=== PATIENT | female | born 1960 | race Caucasian/White ===

== ENCOUNTER 2022-10-04 13:42 | Emergency (ER) | payer OTHER ==
[~2022-10-04] VITALS: Ht 165.1 cm; Wt 104.5 kg
[~2022-10-04 13:42] MED LIST: HYDR25TA4 PO; LISI40TA13 PO; METO200T3 PO
[2022-10-04 13:58] VITALS: BP 142/62
[2022-10-04] MEDS ORDERED: HYDROcodone/acetaminophen 10/325mg tab PO ONE (15:00)
[2022-10-04] MEDS ORDERED: HYDR-3972 PO (15:09)
--- NOTE | 2022-10-04 15:53 | NUR ---
ankle velcro splint applied
== END 2022-10-04 15:56 | disposition home or self-care (01) ==
LOC: ER 13:42
DX: S93.401A Sprain of unspecified ligament of right ankle, initial encounter (principal); M25.571 Pain in right ankle and joints of right foot; E78.00 Pure hypercholesterolemia, unspecified; I10 Essential (primary) hypertension; Z86.19 Personal history of other infectious and parasitic diseases; Z72.89 Other problems related to lifestyle; Z79.899 Other long term (current) drug therapy; W19.XXXA Unspecified fall, initial encounter; Y93.01 Activity, walking, marching and hiking; Y92.89 Other specified places as the place of occurrence of the external cause; Y99.8 Other external cause status
CPT/HCPCS: 29515; 73610; 99284; L1930

== ENCOUNTER 2025-08-14 10:12 | Day surgery (SDC) | payer MEDICARE ==
--- NOTE | 2025-08-07 14:56 | ELECTROCARDIOGRAPH REPORT ---
[facility] Test Date: 2025-08-07 Test Time: 15:54:18 Pat Name: ALEXIS JACKSON Department: [facility]-PRE-OP Patient ID: [facility]-[id number] Room: Gender: F Scientific Research Associate: kaur : 1960 Requested By: DAVE BRANHAM Order Number: [id number] Reading MD: Dr. FRANCOIS Melendez Measurements Intervals [place] Rate: 62 P: 72 FL: 154 QRS: 65 QRSD: 94 T: 51 QT: 418 QTc: 425 Interpretive Statements Sinus rhythm Electronically Signed On 08-08-2025 16:46:[address] FRANCOIS Melendez Please click the below link to view image of tracing.
[2025-08-07 15:04] LABS: MEAN PLATELET VOLUME 7.9 FL (7.4-10.4); PRE OP HEMATOCRIT 39.0 % (35.0-45.0); PRE OP HEMOGLOBIN 13.8 g/dL (12.0-16.0); PRE OP PLATELET COUNT 231 X10'3 (140-440); PRE OP WHITE BLOOD COUNT 8.5 10'3 (4.8-10.8); RED CELL DISTRIBUTION WIDTH 13.5 % (11.5-14.5)
[2025-08-07 15:14] LABS: CREATININE 0.93 MG/DL (0.40-0.90); PRE OP ALT 39 U/L (30-65); PRE OP ANION GAP 5 (8-16); PRE OP AST 24 U/L (10-37); PRE OP BILIRUB, TOTAL 0.9 MG/DL (0.0-1.0); PRE OP GLUCOSE 99 MG/DL (70-104); PRE OP POTASSIUM 3.9 MMOL/L (3.4-5.1); PRE OP SODIUM 134 MMOL/L (135-145); TOTAL CARBON DIOXIDE 31.5 MMOL/L (24-32); eGFR 61 ML/MIN
[2025-08-14] VITALS (15 sets, daily range): BP systolic 100–160; BP diastolic 50–82; PULSE 60–82; RESP 12–23; TEMP 97.2–98; O2SAT 92–99
[~2025-08-14] VITALS: Ht 165.1 cm; Wt 103.9 kg
[2025-08-14] MEDS: ceFAZolin 2gm/dext,iso 50mL 50 ML IV ONE (05:30)
[~2025-08-14 10:12] MED LIST changes: +ALBU8HFA PO; +ASPI-529 PO; +ATOR10TA70 PO; +CENTRUM MVT PO; +CHOL100017 PO; +FISH1CAP15 PO; +LISI20TA28 PO; -LISI40TA13 PO; +MAGN500C4 PO; +MECL-302 PO; +METF-900 PO; -METO200T3 PO; +SEMA0.258 SQ
[2025-08-14] MEDS: ringers solution, lacted 1,000 ML IV SCH (10:54)
[2025-08-14] MEDS ORDERED: ringers solution, lacted 1,000 ML IV SCH (12:35)
[2025-08-14] MEDS ORDERED: hydrALAZINE 20mg/ml inj. IV PRN (12:35)
[2025-08-14] MEDS ORDERED: labetalol 20mg/4ml (5mg/ml) syringe IV PRN (12:35)
[2025-08-14] MEDS ORDERED: fentaNYL/PF 50MCG/1 ML 2ML syringe IV PRN ×2 (12:35)
[2025-08-14] MEDS ORDERED: LIDOcaine 1% 30ml preserv. free vial ONE (13:15)
[2025-08-14] MEDS ORDERED: BUPIVAcaine/PF 2.5mg/ml (0.25%) 10ml vial ONE ×2 (13:15→13:23)
[2025-08-14] MEDS ORDERED: BUPIVACAINE liposomal/PF 13.3 MG/ML 10mL vial IM ONE (13:23)
--- NOTE | 2025-08-14 13:27 | HISTORY AND PHYSICAL ---
History & Physical Providers to CC CC: AUSTEN BRANHAM ~ History of Present Illness Reason for Admit\\Complaint: Incisional hernia History of Present Illness Interval history and physical exam Patient here today for elective repair of an incisional hernia related to a previous laparoscopic cholecystectomy This is around the umbilicus She was seen in the office last month but denies any change in her past medical history (please see previous history and physical exam for all pertinent details) She is scheduled for robotic assisted laparoscopic mesh repair Allergies: Coded Allergies: codeine (Unverified Allergy, Severe, SWELLING, ITCHING, REDNESS, "CAN'T BREATHE", 08/13/25) Pt okay with taking Triangle. Uncoded Allergies: pitcair[place] islander cheese (Allergy, Severe, 04/26/15) itching tongue swelling Home Medications Home Medications Active Reported [Centrum Mvt] 1 Tab PO DAILY Fish Oil 1,200 Mg Fish Oil (Fish Oil/Dha/Epa) 1,200 Mg-144 Mg-216 Mg Capsule 1 Cap PO DAILY Baby Aspirin (Aspirin) 81 Mg Tab.chew 1 Tab PO DAILY Magnesium (Magnesium Oxide) 500 Mg Capsule 1 Cap PO DAILY Pro-Air Inhaler (Albuterol) 8.5 Gm Inhaler 1-2 Puffs PO Q4H PRN Vitamin D3 (Cholecalciferol (Vitamin D3)) 25 Mcg (1000 Unit) Tablet 1 Tab PO DAILY Atorvastatin Calcium 10 Mg Tablet 1 Tab PO DAILY Metformin ER* (Metformin HCl) 500 Mg Tab.sr.24h 1 Tab PO BID Lisinopril 20 Mg Tablet 1 Tab PO DAILY Meclizine HCl 25 Mg Tablet 1 Tab PO BID Ozempic (Semaglutide) 0.25 Mg/0.368 Ml Pen.injctr 0.25 Mg SQ Q7D (EVERY MONDAY) Hydrochlorothiazide 25 Mg Tablet 1 Tab PO DAILY Family History Family History: (CABG) Coronary artery bypass grafting FATHER (CAD) Coronary arteriosclerosis FATHER (DM Type 2) Diabetes mellitus type 2 FATHER (NM) Myocardial infarction FATHER Asthma CHILD CHILD CHILD No Family History of: (PVD) Peripheral vascular disease (TIA) Transient ischemic attack ROS ROS Reviewed and negative Exam Vitals: Vital Signs Date Time Temp Pulse Resp B/P (MAP) Pulse Ox O2 Delivery O2 Flow Rate FiO2 08/14/25 10:30 60 16 98 08/14/25 10:30 Room Air 08/14/25 10:30 97.2 160/76 (104) General: 64-year-old female in no acute distress Chest: Lungs are clear to auscultation bilaterally Cardiovascular: Regular rate and rhythm without murmurs Abdomen: Soft and nondistended Periumbilical mass with the associated cough impulse Problems: (1) Incisional hernia Assessment & Plan: The risks, benefits, and alternatives to a robotic assisted, laparoscopic incisional hernia repair with mesh were discussed with the patient. Risks include, but are not limited to, bleeding, infection, injury to intra-ab dominal structures, hernia recurrence and chronic postoperative pain. Patient verbalized understanding and wishes to proceed with surgery. We will do so today as scheduled. DVAE BRANHAM MD Aug 14, 2025 13:27
[2025-08-14] MEDS ORDERED: midazolam 1 mg/ML 2ml injection ONE (13:46)
[2025-08-14] MEDS ORDERED: fentaNYL /PF 50mcg/ml 5ml ampule ONE (13:46)
[2025-08-14] MEDS ORDERED: propofol inj 20 ML IV ONE (13:51)
[2025-08-14] MEDS ORDERED: LIDOcaine 1%/PF 5ML 10 MG/ML VIAL ONE (13:51)
[2025-08-14] MEDS ORDERED: rocuronium 10mg/ml inj IV ONE (13:51)
[2025-08-14] MEDS ORDERED: labetalol 20mg/4ml (5mg/ml) syringe IV ONE (13:53)
[2025-08-14] MEDS ORDERED: ondansetron/PF 4mg/2ml inj ONE (13:53)
[2025-08-14] MEDS ORDERED: acetaminophen 1,000mg/100ml IV 100 ML IV ONE (13:53)
[2025-08-14] MEDS ORDERED: dexamethasone sod phosphate 4mg/ml inj. ONE (14:01)
[2025-08-14] MEDS: LIDOcaine 1% 30ml preserv. free vial IJ ONE (14:15)
[2025-08-14] MEDS: BUPIVAcaine/PF 2.5mg/ml (0.25%) 10ml vial IJ ONE ×2 (14:15→14:33)
[2025-08-14] MEDS ORDERED: hydrALAZINE 20mg/ml inj. ONE (14:18)
[2025-08-14] MEDS ORDERED: glycopyrrolate 0.2mg/ml inj ONE (14:30)
[2025-08-14] MEDS: BUPIVACAINE liposomal/PF 13.3 MG/ML 10mL vial IM ONE (14:34)
[2025-08-14] MEDS: morphine 4 MG/ML inj SYRINge IV PRN (15:14)
[2025-08-14] MEDS ORDERED: oxyCODONE/APAP 5-325mg tablet PO PRN (15:15)
--- NOTE | 2025-08-14 15:20 | OPERATIVE REPORT ---
Operative Report Providers to CC: AUSTEN BRANHAM ~ Date of Procedure: Aug 14, 2025 Pre-Operative Diagnosis: Incisional hernia Post-Operative Diagnosis 4 cm incarcerated incisional hernia Procedure Performed Robotic assisted, laparoscopic mesh repair of an incarcerated 4 cm incisional hernia Bilateral transversus abdominis plane nerve blocks by injection using 266 mg of Exparel Surgeon: Mani Branham MD FACS Ophthalmic Technician None Anesthesiologist: Hermelindo Rose Type of Anesthesia: General Findings: 4 cm fascial defect just above the umbilicus with a large amount of incarcerated omentum and associated hernia sac Wound class I Complications None Prosthetics\Implants used: 12 cm diameter coated polyester mesh Estimated Blood Loss: Minimal Specimen Removed: None Description of Procedure: Patient was brought to the operating room and identified by the nursing staff and the attending physician. Patient was placed supine and a general anesthesia was induced. Preoperative antibiotics were given. The abdomen was prepped and draped in the standard sterile fashion. Through a left subcostal stab incision the abdomen was accessed with a Veress needle technique. Abdomen was insufflated without incident. The incision was lengthened to accommodate a 12 mm optical trocar and the abdomen was entered under laparoscopic visualization. The abdomen was surveyed laparoscopically. Omentum was tented up to the anterior abdominal wall and herniated through a fascial defect. Attempts at reducing this with external compression were unsuccessful consistent with incarcerated status. Under laparoscopic visualization, robotic trochars were placed in the left lateral and left lower quadrant. The da Julian robotic arm was docked to the patient and instruments guided intra-abdominally under laparoscopic visualization. Omentum was tented up the anterior abdominal wall and herniated through an obvious fascial defect. About 15 minutes was spent mobilizing this out of a [id number] hernia sac. It was completely reduced. Fascial defect measured 4 cm in diameter. Fascial defect(s) were then reapproximated with running, nonabsorbable, 0V lock suture. Good fascial apposition was obtained without significant tension. A coated polyester mesh was then fixed to the anterior abdominal wall with running, absorbable, 2/0, V lock suture. Mesh laid without wrinkles or folds. The mesh measured 12 cm in diameter The da Julian instruments were then removed and the robot undocked from the patient. Bilateral transversus abdominis plane nerve blocks by injection were then placed under laparoscopic visualization using a combination of Marcaine and 266 mg of Exparel. The left subcostal trocar was removed and its fascia closed percutaneously with 0 Vicryl suture under laparoscopic visualization. Remaining trochars were removed after the abdomen was allowed to deflate. Skin was closed at all sites with 4-0 Monocryl sutures and dressed with sterile dressings. Patient was awakened and taken to the postanesthesia care unit in stable condition. Counts repoted as correct: Yes MANI BRANHAM MD Aug 14, 2025 15:20
[2025-08-14] MEDS: ondansetron/PF 4mg/2ml inj IV PRN (15:24)
== END 2025-08-14 17:02 | disposition home or self-care (01) ==
LOC: PAS 10:12
PROVIDERS: ATTEND Surgery
DX: K43.0 Incisional hernia with obstruction, without gangrene (principal); I10 Essential (primary) hypertension; E11.9 Type 2 diabetes mellitus without complications; J44.9 Chronic obstructive pulmonary disease, unspecified; E66.9 Obesity, unspecified; I25.2 Old myocardial infarction; Z79.82 Long term (current) use of aspirin; Z79.84 Long term (current) use of oral hypoglycemic drugs; Z79.899 Other long term (current) drug therapy; Z90.49 Acquired absence of other specified parts of digestive tract; Z96.651 Presence of right artificial knee joint; Z98.51 Tubal ligation status; Z98.890 Other specified postprocedural states; Z68.38 Body mass index [BMI] 38.0-38.9, adult; Z88.5 Allergy status to narcotic agent; Z82.49 Family history of ischemic heart disease and other diseases of the circulatory system; Z82.5 Family history of asthma and other chronic lower respiratory diseases; Z83.3 Family history of diabetes mellitus
CPT/HCPCS: 36415; 49594; 64488; 80053; 82948; 85025; 93005; A4215; A4618; C1781; J0131; J0360; J0666; J1100; J2003; J2250; J2270; J2405; J2704; J2710; J3010; J3490; J7030; J7120; Z7506; Z7508; Z7512; Z7610